=== PATIENT | male | born 1955 | race Caucasian/White ===

== ENCOUNTER → 2022-02-28 | Day surgery (SDC) | payer MEDICARE, OTHER ==
[~2022-02-28] VITALS: Ht 185.4 cm; Wt 107.1 kg
[~2022-02-28] MED LIST: AMLODIPINE PO; APIX5TAB PO; ATOR20TA66 PO; BENAZEPRIL PO; DILT120C10 PO; EMPA25TA PO; METF-397 PO; MULT-1136 PO; NS IV 1000 ML 1,000 ML IV SCH; TADA5TAB4 PO; UBID100C44 PO; proPOfol 200 MG/20 ML (DIPRIVAN) VIAL IV ONE
[2022-02-28 08:30] VITALS: BP 120/81
[2022-02-28 08:51] LABS: HEMATOCRIT 42 % (40-54); HEMOGLOBIN 13.5 g/dL (13.3-17.7); MEAN CORPUSCULAR HEMOGLOBIN 30 pg (25-34); MEAN CORPUSCULAR HGB CONC 32 g/dL (32-36); MEAN CORPUSCULAR VOLUME 92 fL (80-99); MEAN PLATELET VOLUME 9.3 fL (9.0-12.2); PLATELET COUNT 262 10^3/uL (130-400); WHITE BLOOD COUNT 6.6 10^3/uL (4.3-11.0)
[2022-02-28 09:11] LABS: INR 1.2 (0.8-1.4); PROTHROMBIN TIME PATIENT 15.8 SEC (12.2-14.7)
[2022-02-28 09:16] LABS: ALBUMIN 4.1 GM/DL (3.2-4.5); BILIRUBIN,TOTAL 0.5 MG/DL (0.1-1.0); CALCIUM 8.8 MG/DL (8.5-10.1); CREATININE SERUM 1.15 MG/DL (0.60-1.30); POTASSIUM 4.4 MMOL/L (3.6-5.0)
[2022-02-28 10:07] VITALS: BP 142/109
[2022-02-28 10:43] VITALS: BP 122/84
[2022-02-28 11:00] VITALS: BP 120/81
[2022-02-28 11:15] VITALS: BP 123/84
[2022-02-28 11:30] VITALS: BP 125/85
--- NOTE | 2022-02-28 12:30 | Anesthesia-General Post-Op ---
MAC Patient Condition Mental Status/LOC: Same as Preop Cardiovascular: Satisfactory Nausea/Vomiting: Absent Respiratory: Satisfactory Pain: Controlled Complications: Absent Post Op Complications Complications None Follow Up Care/Instructions Patient Instructions None needed. Anesthesiology Discharge Order Discharge Order Patient is doing well, no complaints, stable vital signs, no apparent adverse anesthesia problems. No complications reported per nursing. DARRIUS SALCEDO CRNA Feb 28, 2022 12:30
--- NOTE | 2022-02-28 14:47 | OPERATIVE REPORT ---
DATE OF SERVICE: 02/28/2022 EXTERNAL ELECTRICAL CARDIOVERSION REPORT PREOPERATIVE DIAGNOSIS: Atrial fibrillation. POSTOPERATIVE DIAGNOSIS: Sinus rhythm. PROCEDURE: External synchronized electrical cardioversion. INDICATIONS: The patient is a 66-year-old gentleman who was recently diagnosed with atrial fibrillation. Heart rate has been difficult to control. He remained on uninterrupted anticoagulation for three weeks prior to today's electrical cardioversion and anticoagulation is to be continued without any breaks. DESCRIPTION OF PROCEDURE: Informed consent was obtained. The nurse informatics developer delivered short acting anesthesia. A 120 joules biphasic shock was delivered through external patches, which converted atrial fibrillation to normal sinus rhythm, and he tolerated the procedure well Job ID: [id number] DocumentID: [id number] Dictated Date: 02/28/2022 10:26:26 Training And Development Professional Date: 02/28/2022 14:47:18 Dictated By: ASPEN FREEMAN MD, MA, FACP, FACC,
== END | disposition home or self-care (01) ==
LOC: CATH 08:17
PROVIDERS: ATTEND Internal Medicine Cardiovascular Disease
DX: I48.0 Paroxysmal atrial fibrillation (principal); Z79.01 Long term (current) use of anticoagulants; E11.9 Type 2 diabetes mellitus without complications; E78.5 Hyperlipidemia, unspecified; I10 Essential (primary) hypertension; E66.9 Obesity, unspecified; Z68.31 Body mass index [BMI] 31.0-31.9, adult; Z79.84 Long term (current) use of oral hypoglycemic drugs
CPT/HCPCS: 36415; 80053; 80061; 85027; 85610; 85730; 87081; 92960; 93005

== ENCOUNTER 2022-04-24 14:12 | Outpatient (CLI) | payer MEDICARE, OTHER ==
[~2022-04-24 14:12] MED LIST changes: -NS IV 1000 ML 1,000 ML IV SCH; -proPOfol 200 MG/20 ML (DIPRIVAN) VIAL IV ONE
== END 2022-04-24 14:35 ==
LOC: SLEEP 14:12
PROVIDERS: ATTEND Otolaryngology Otolaryngology/Facial Plastic Surgery
DX: G47.33 Obstructive sleep apnea (adult) (pediatric) (principal)
CPT/HCPCS: G0399

== ENCOUNTER → 2022-05-02 | Outpatient (CLI) | payer MEDICARE, OTHER ==
[~2022-05-02] VITALS: Ht 185 cm; Wt 100.0 kg
[~2022-05-02] MED LIST changes: +CATHETER FLUSH 10 ML SYR IVP PRN; +REGADENOSON 0.4 MG/5 ML SYR (LEXISCAN) IV ONE
[2022-05-02 09:16] VITALS: BP 153/105
--- NOTE | 2022-05-02 20:53 | STRESS TEST ---
DATE OF SERVICE: 05/02/2022 RESTING AND POST REGADENOSON TECHNETIUM-99M TETROFOSMIN SPECT CT IMAGING Baseline images were carried out after injection of 10.96 mCi of technetium-99m Tetrofosmin. This was followed by 0.4 mg regadenoson and 30.5 mCi of technetium-99m Tetrofosmin for stress imaging. The electrocardiogram showed sinus rhythm at baseline. It did not change significantly with the regadenoson infusion. The patient noted mild shortness of breath following regadenoson infusion, which resolved in a few minutes. Review of images at rest and following stress does not indicate any significant perfusion defects consistent with myocardial ischemia or infarction. Gated images show normal global left ventricular systolic function with normal regional wall motion. Left ventricular ejection fraction is calculated to be 56%. CONCLUSIONS: 1. No evidence of any significant myocardial ischemia or infarction on this study. 2. Normal regional wall motion. 3. Normal global left ventricular systolic function with a calculated ejection fraction of 56%. Job ID: [id number] DocumentID: [id number] Dictated Date: 05/02/2022 16:15:11 Licensed And Certified Midwife Date: 05/02/2022 20:53:05 Dictated By: ASPEN FREEMAN MD, MA, FACP, FACC,
== END ==
LOC: CARD 07:08
PROVIDERS: ATTEND Internal Medicine Cardiovascular Disease
DX: R06.09 Other forms of dyspnea (principal)
CPT/HCPCS: 78452; 93017; A9502